=== PATIENT | female | born 2000 | race Caucasian/White ===

== ENCOUNTER 2024-12-21 18:14 | Emergency (ER) | payer OTHER, SELFPAY ==
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
--- OUTSIDE RECORDS SUMMARY | 2024-12-21 18:22 | XMS_ITS | Encounter Summary ---
Author Organization [facility] Address [address] [place] [address] Care Team Providers Care Collateral Analyst Name Role Phone Melissa Gonzales APN Primary Care Provider [phone] Encounter Details Date Type Department Care Team (Late Contact Info) Description 10/27/2024 Results Follow-Up [facility] [address] [place] [address] Yolette Urban APN [address] [place] [address] Social History Tobacco Use Types Packs/Day Years Used Date Smoking Tobacco: Never Smokeless Tobacco: Never Alcohol Use Standard Drinks/Week Comments No 0 (1 standard drink = 0.6 oz pur e alcohol) PHQ-2 Answer Date Recorded PHQ-2 Total Score 0 02/22/2024 Comments No Sex and Gender Information Value Date Recorded Sex Assigned at Not on file Legal Sex Female 6:00 AM CDT Gender Identity Not on file Sexual Orientation Not on file documented as of this encounter Plan of Treatment Upcoming Encounters Date Type Department Care Team (Late Contact Info) Description 02/13/2025 2:00 PM CDT Appointment [facility] [address] [place] [address] Melissa Gonzales APN [address] [place] [address] documented as of this encounter Visit Diagnoses Not on filedocumented in this encounter Additional Health Concerns Infection Onset Date Last Indicated Resolved Time Respiratory (droplet) 10/27/2024 10/27/20242024 1:20 AM RAIL CAR LOADER Assessment Noted Time PHQ-9 Depression Total Score: 2 02/22/20 7:27 PM CDT A Body Mass Index follow-up plan has been documented for the patient 12/11/2022 9:19 AM RAIL CAR LOADER documented as of this encounter Care Teams Collateral Analyst Relationship Specialty Start Date End Date Melissa Gonzales APN [address] [place] [phone] PCP - General Family Medicine 05/17/23 documented as of this encounter
--- OUTSIDE RECORDS SUMMARY | 2024-12-21 18:22 | XMS_ITS | Clinical Summary ---
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 Gender Identity Not on file Sexual Orientation Not on file Plan of Treatment Health Maintenance Due Date Last Done Comments Cervical Cancer Screening Pa p Smear (Age 21 to 29) Every 3 Years 2002 Cervical Cancer Screening 2002 Annual Physical 2005 HPV Vaccines (1 - 3-dose series) 2017 Meningococcal B Vaccine (1 o f 2 - Standard) 2018 Hepatitis C 2020 DTaP, Tdap and Td Vaccines ( 1 - Tdap) 2021 Hepatitis B Vaccines (1 of 3 - 19+ 3-dose series) 2021 COVID-19 Vaccine ( - 2023-2 5 season) 2024 Influenza Adult (#1) 2024 Meningococcal Vaccine Aged Out No ok terri eligible based on patient's age to complete this topic Pneumococcal Vaccine: Pediat rics (0 to 5 Years) and At-Risk Patients (6 to 64 Years) Aged Out No longer eligible b ased on patient's age to complete this topic RSV Immunizations Under 20 Months Aged Out No longer eligible based on patient's age to complete this topic
[2024-12-21 18:27] VITALS: BP 137/69; PULSE 90; RESP 16; TEMP 37.2; O2SAT 100
--- NOTE | 2024-12-21 18:30 | ED.FEMALEGU ---
HPI - Female Genitourinary General Chief complaint: Urogenital-Female Stated complaint: Urinary Problem Time Seen by Provider: 12/21/24 18:31 Source: patient and RN notes reviewed Mode of arrival: ambulatory Limitations: no limitations History of Present Illness HPI Narrative: 24 y/o female presented for c/o burning with urination and frequency. Onset 2 days. Reports history of UTIs and says this feels similar. Denies hematuria, nausea, vomiting, abdominal pain, flank pain, constipation, diarrhea, fevers or chills. Related Data Allergies Allergy/AdvReac Type Severity Reaction Status Date / Time No Known Allergies Allergy Verified 12/21/24 18:29 Review of Systems Review of Systems: CONSTITUTIONAL: Denies body aches, fever, chills, or sweats. CARDIOVASCULAR: Denies chest pain, palpitations, or edema. RESPIRATORY: Denies cough or dyspnea. GASTROINTESTINAL: Denies abdominal pain, nausea, vomiting, or diarrhea. GENITOURINARY: Reports dysuria, frequency, denies urgency, hematuria, flank pain SKIN: Denies rash MUSCULOSKELETAL: Denies back pain or myalgia. PMFSH Comments At time of signature, I have reviewed and agree with nursing past medical, surgical, social and family history unless otherwise noted. Please see nursing chart for further information. There is no relevant family history pertinent to the presenting complaint Exam Narrative: GENERAL: Well-appearing ENT: Mucous membranes pink and moist. NECK: Normal AROM. Supple. CHEST: No respiratory distress. Clear to auscultation. HEART: Regular rate and rhythm. ABDOMEN: Soft, nontender, nondistended, normal active bowel sounds. No CVA tenderness SKIN: Warm, dry, no rash. NEURO: No focal deficits. Alert and oriented x3. Gait steady. PSYCH: Normal affect. Course Course Emergency Course: Patient is aware of diagnosis, understands and agrees to treatment plan. Anticipatory guidance given. Patient agrees to follow-up as directed and is aware of reasons to seek care at the emergency department. Portions of this record may have been created with voice recognition software Level of Care: Express Care Visit Vital Signs Vital signs: Vital Signs Temperature 98.9 F 12/21/24 18:27 Pulse Rate 90 12/21/24 18:27 Respiratory Rate 16 12/21/24 18:27 Blood Pressure 137/69 12/21/24 18:27 Pulse Oximetry 100 12/21/24 18:27 Oxygen Delivery Room Air 12/21/24 18:27 Temperature 98.9 F 12/21/24 18:27 Pulse Rate 90 12/21/24 18:27 Respiratory Rate 16 12/21/24 18:27 Blood Pressure 137/69 12/21/24 18:27 Pulse Oximetry 100 12/21/24 18:27 Oxygen Delivery Room Air 12/21/24 18:27 Reviewed MDM - Female Genitourinary MDM Narrative Medical decision making narrative: Discussed physical exam findings. Discussed treatment options including waiting for culture, she elects treatment at this time due to her frequent history of uti. Advised supportive measures and signs/symptoms to go to the ER. Pt is appropriate for outpt treatment and f/u. Differential Diagnosis Differential diagnosis: Likely urinary tract infection, cystitis and other Discharge Plan Discharge Clinical Impression: Dysuria Patient Disposition: Home, Self-Care Condition: Stable Instructions: Antibiotic Form, Urinary Tract Infection in Women (ED) Additional Instructions: Take the antibiotic as prescribed The urine will be sent of for a culture to identify what type of bacteria is causing your infection. If the culture shows that the antibiotic will not get rid of your infection, you will be notified and a new antibiotic will be called in for you. Increase water intake you will need to follow up with your PCP, call to schedule an appointment. Go to the ER for any worsening symptoms or concerns Patient Language: Citizen Of [place] Prescriptions: New amoxicillin-pot clavulanate [Augmentin] 500-125 mg tablet 1 tablet PO Q12H 5 Days Qty: 10 0RF Follow-up/Referrals: PHYSICIAN NOT ON STAFF,NONSTAFF [Primary Care Provider] - Time of Disposition: 18:49
[2024-12-21 18:50] LABS: EDUAAPPEAR Clear; EDUABILI Negative (Negative); EDUABLOOD Negative (Negative); EDUACOLOR1 Yellow; EDUAGLUCOSE Negative (Negative); EDUAKETONE Negative (Negative); EDUALEUKO Trace (Negative); EDUANITRATE Negative (Negative); EDUAPROTEIN Negative (Negative); EDUAUROBILI 0.2
== END 2024-12-21 18:50 | disposition home or self-care (01) ==
PROVIDERS: Emergency Provider Nurse Practitioner Family
DX: R30.0 Dysuria (principal)
CPT/HCPCS: 81003; 87086; 99203; G0463